=== PATIENT | female | born 1945 | race Caucasian/White ===

== ENCOUNTER → 2016-12-15 | Outpatient (CLI) | payer OTHER, MEDICARE ==
[~2016-12-15] MED LIST: AMBIEN5 MG PO; ASPIRIN81 M1 PO; AZOR 10/40 M1 TABLET PO; Aspirin E.C. PO; BENICAR20 MG PO; BONE ESSENT166.75 MG PO; CATAPRES0.1 MG PO; CELEXA20 MG PO; CIPRO250 MG PO; CLONIDINE HCL0.1 MG PO; CYCLOBENZAPRINE10 M1 PO; DOXYCYCLINE HY100 MG PO; Diabeta,Micronase PO; Feosol PO; GLIPIZIDE ER; GLIPIZIDE10 MG PO; GLUCOTROL10 MG PO; IRON 100 PLUS1 EACH PO; JANUVIA25 M1 PO; Januvia PO; KOMBIGLYZE XR1 EAC2 PO; LASIX20 MG PO; LASIX40 MG PO; LEVEMIR FL100 UNIT/1 SC; LEXAPRO20 MG PO; LO-DOSE ASPIRIN81 M1 PO; LOVENOX40 MG/0.4 SC; Lopressor PO; METOPROLOL TART25 MG PO; MIRAPEX1.5 MG PO; Maalox, Mylanta PO; Milk Of Magnesia,MOM PO; NITROSTAT,NITR0.4 M1 SL; NOVOLOG PE100 UNITS/ SC; Norvasc PO; PRAVACHOL40 MG PO; PRAVASTATIN SOD20 MG PO; PRILOSEC20 MG PO; Protonix PO; SENOKOT S,PE1 TABLET PO; SINEMET 25-1001 EACH PO; THERAGRAN1 TABLET PO; TRAMADOL HCL50 MG PO; Tylenol Regular Stre PO; VITAMIN D31000 UNI2 PO; Vicodin,Norco 5/325 PO; celeXA PO
== END | disposition home or self-care (01) ==
LOC: RES 09:28
DX: J20.9 Acute bronchitis, unspecified (principal)
CPT/HCPCS: 94060; 94726; 94729

== ENCOUNTER → 2018-02-28 | Outpatient (CLI) | payer OTHER, MEDICARE ==
[~2018-02-28] MED LIST changes: +ALLOPURINOL100 MG PO; +APRESOLINE10 MG PO; +ATORVASTATIN CA40 MG PO; +CARBIDOPA-LEVO1 EAC5 PO; +CARBIDOPA/LEVO1 EACH PO; +DUONEB 2.5-0.5 M3 ML AEROSOL; +IMDUR30 MG PO; +METOPROLOL SUCC25 MG PO; +RENA-VITE RX T1 EACH PO; +STOOL SOFTENER1 EAC2 PO; +VENTOLIN HFA18 GM IH; +[UNRECOGNIZED DRUG - OTHER]; +[UNRECOGNIZED DRUG - REMARK]
== END | disposition home or self-care (01) ==
LOC: AMB 07:30
PROC: 02PYX3Z Removal of Infusion Device from Great Vessel, External Approach (ICD-10-PCS; principal; 2018-02-28)
DX: Z45.2 Encounter for adjustment and management of vascular access device (principal)

== ENCOUNTER 2018-04-16 11:20 | Emergency (ER) | payer OTHER, MEDICARE ==
[~2018-04-16] VITALS: Ht 144.8 cm; Wt 77.2 kg
[2018-04-16 11:49] LABS: APPEARANCE SL.HAZY ((CLEAR)); BILIRUBIN NEGATIVE; BLOOD NEGATIVE; COLOR YELLOW ((YELLOW)); GLUCOSE (STRIP) 150; KETONES 5; LEUKOCYTES MODERATE; NITRITE NEGATIVE; PROTEIN (STRIP) 100; SPECIFIC GRAVITY 1.014 (1.000-1.030); UROBILINOGEN 0.2 MG/DL (0.2-1.0)
[2018-04-16 11:54] LABS: BACTERIA RARE /HPF; EPITHELIAL CELLS 1+ /HPF; MUCUS TRACE /LPF; RED BLOOD CELLS 0-5 /HPF (0-5); UCUL ADDED? NO; WHITE BLOOD CELLS 0-5 /HPF (0-5)
[2018-04-16 12:39] LABS: BASOPHIL (%) 0.3 % (0-1); EOSINOPHIL (%) 1.6 % (0-5); EOSINOPHIL COUNT 0.2 K/uL (0-0.3); HEMATOCRIT 31.8 % (36.0-46.0); HEMOGLOBIN 10.9 G/DL (11.9-15.5); IMMATURE GRANULOCYTE (%) 0.6 % (0.0-0.7); LYMPHOCYTE (%) 16.3 % (15-42); MCH 30.3 PG (29.0-34.0); MCHC 34.3 G/DL (30.0-36.0); MCV 88.3 FL (83-99); MONOCYTE COUNT 0.6 K/uL (0-0.8); NEUTROPHIL (%) 76.2 % (45-76); NEUTROPHIL COUNT 9.2 K/uL (1.8-6.4); PLATELET COUNT 222 K/uL (156-360); RBC DIS.WIDTH-CV 14.4 % (11.8-14.6); RBC DIS.WIDTH-SD 46.4 % (39-53); WHITE BLOOD COUNT 12.1 K/uL (4.1-10.2)
[2018-04-16 12:49] LABS: ALBUMIN 3.4 g/dL (3.2-4.8); CHLORIDE 103 mEq/L (99-109); POTASSIUM 4.3 mEq/L (3.7-5.4); SODIUM 136 mEq/L (136-147)
[2018-04-16 12:50] LABS: MAGNESIUM 1.5 mg/dL (1.3-2.7)
[2018-04-16 12:52] LABS: GLUCOSE 361 mg/dL (70-99); TOTAL PROTEIN 6.3 g/dL (6.4-8.3)
[2018-04-16 12:54] LABS: TOTAL BILIRUBIN 0.5 mg/dL (0.0-1.0)
[2018-04-16 12:55] LABS: ALKALINE PHOSPHATASE 59 IU/L (3-129); CREATININE 1.7 mg/dL (0.6-1.3); GFR ESTIMATE (CALCULATED) 31 mL/min/
[2018-04-16 12:57] LABS: AST (GOT) 25 IU/L (2-34); UREA NITROGEN (BUN) 37 mg/dL (9-23)
[2018-04-16 12:58] LABS: ALT (GPT) 5 IU/L (3-49)
[2018-04-16 12:59] LABS: TROP-I INTERPRETATION NEGATIVE; TROPONIN-I 0.06 ng/mL (0.0-0.30)
[2018-04-16] MEDS ORDERED: CIPRO500 MG PO (15:57)
[2018-04-16 17:03] VITALS: BP 180/75
== END 2018-04-16 17:04 | disposition home or self-care (01) ==
LOC: EME 11:20
PROVIDERS: Emergency Medicine
DX: N39.0 Urinary tract infection, site not specified (principal); R00.1 Bradycardia, unspecified; I25.2 Old myocardial infarction; E11.9 Type 2 diabetes mellitus without complications; K21.9 Gastro-esophageal reflux disease without esophagitis; I50.9 Heart failure, unspecified; G20 Parkinson's disease; G47.30 Sleep apnea, unspecified; F03.90 Unspecified dementia, unspecified severity, without behavioral disturbance, psychotic disturbance, mood disturbance, and anxiety; F32.9 Major depressive disorder, single episode, unspecified; Z79.82 Long term (current) use of aspirin; Z79.4 Long term (current) use of insulin; Z99.2 Dependence on renal dialysis; Z95.1 Presence of aortocoronary bypass graft; Z87.442 Personal history of urinary calculi; Z87.440 Personal history of urinary (tract) infections; Z98.890 Other specified postprocedural states; Z90.49 Acquired absence of other specified parts of digestive tract; Z88.2 Allergy status to sulfonamides; Z88.0 Allergy status to penicillin; Z88.5 Allergy status to narcotic agent; Z88.8 Allergy status to other drugs, medicaments and biological substances
CPT/HCPCS: 70450; 71045; 74176; 80053; 81003; 83605; 83735; 83880; 84484; 85025; 87040; 93005; 99281; 99285; J0696